=== PATIENT | male | born 1965 | race Caucasian/White ===

== ENCOUNTER 2023-01-11 12:46 | Outpatient (CLI) | payer BC, SELFPAY ==
--- NOTE | 2023-01-11 13:00 | CRLHL7_ITS ---
For Patients: As a result of the Century Cures Act, medical imaging exams and procedure reports are released immediately into your electronic medical record. You may view this report before your referring provider. If you have questions, please contact your health care provider. INDICATION: Conductive hearing loss. Dizziness. TECHNIQUE: Noncontrast CT images acquired through the temporal bones. COMPARISON: None. FINDINGS: Right side: The external auditory canal is widely patent. Tympanic membrane thickening. Mild opacification of the middle ear cavity, including Prussak`s space. The ossicles and scutum are intact. No evidence for otosclerosis. Normal morphology of the inner ear structures. No semicircular canal dehiscence. Mild opacification of the mastoid air cells. Left Side: The external auditory canal is widely patent. Tympanic membrane thickening. Mild opacification of the middle ear cavity, including Prussak`s space. The ossicles and scutum are intact. No evidence for otosclerosis. Normal morphology of the inner ear structures. No semicircular canal dehiscence. Locl-[id number]-roeqlyoh opacification the mastoid air cells. Other: Beam hardening artifact secondary to metallic devices overlying the right and left retrosigmoid calvarium limits evaluation of adjacent structures. [id number]-[id number] mucosal thickening in the posterior ethmoid air cells and left sphenoid sinus. IMPRESSION: Right side: 1. Mild opacification of the middle ear cavity and mastoid air cells. There is no ossicular or scutal erosion. Findings can be seen in the setting of chronic otomastoid airspace disease. 2. Tympanic membrane thickening. Left Side: 1. Mild opacification of the middle ear cavity and [id number] opacification of the mastoid air cells. There is no ossicular or scutal erosion. Findings can be seen in the setting of chronic otomastoid airspace disease. 2. Tympanic membrane thickening. Please note that all CT scans at this facility use dose modulation, iterative reconstruction, and/or weight-based dosing when appropriate to reduce radiation dose to as low as reasonably achievable. Dictated by Riky Morton MD @ 01/12/2023 7:49:07 AM (Electronically Signed)
== END 2023-01-11 12:47 | disposition home or self-care (01) ==
LOC: CT 12:48
PROVIDERS: PCP Family Medicine; Visit Provider Otolaryngology
DX: H90.2 Conductive hearing loss, unspecified (principal); R42 Dizziness and giddiness
CPT/HCPCS: 70480